=== PATIENT | male | born 1995 | race American Indian/Alaskan Native ===

== ENCOUNTER 2017-10-18 15:25 | Emergency (ER) | payer SELFPAY ==
[2017-10-18 15:56] VITALS: BP 148/84
--- NOTE | 2017-10-18 18:17 | Emergency Department Report ---
ED Psych HPI - General Chief Complaint: Psych Stated Complaint: MENTAL HEALTH EVALUATION Time Seen by Provider: 10/18/17 18:01 Source: patient Mode of arrival: Ambulatory - History of Present Illness Initial Comments: Patient is a 22-year-old black male who is presenting with psych issues. Patient states he is hearing his family talking it is irritating his left ear. Patient is states that he is hearing smacking sound but states he is not hearing voices. Patient states he is just very irritated and agitated but denies any suicidal homicidal ideations. Patient's father states that they want him to be sent to a psychiatric facility patient again is adamant that he is not homicidal suicidal and just irritated. - Related Data Allergies Allergy/AdvReac Type Severity Reaction Status Date / Time No Known Allergies Allergy Unverified 10/18/17 15:44 ED Review of Systems ROS: Stated complaint: MENTAL HEALTH EVALUATION Other details as noted in HPI Comment: All other systems reviewed and negative ED Past Medical Hx - Past Medical History Hx Psychiatric Treatment: (Bipolar, Schziophrenia) - Social History Smoking Status: Current Every Day Smoker Substance Use Type: Marijuana ED Physical Exam - General Limitations: No Limitations General appearance: alert, in no apparent distress - Head Head exam: Present: atraumatic, normocephalic - Eye Eye exam: Present: normal appearance - ENT ENT exam: Present: mucous membranes moist - Neck Neck exam: Present: normal inspection - Respiratory Respiratory exam: Present: normal lung sounds bilaterally. Absent: respiratory distress - Cardiovascular Cardiovascular Exam: Present: regular rate, normal rhythm. Absent: systolic murmur, diastolic murmur, rubs, gallop - GI/Abdominal GI/Abdominal exam: Present: soft, normal bowel sounds - Rectal Rectal exam: Present: deferred - Extremities Exam Extremities exam: Present: normal inspection - Back Exam Back exam: Present: normal inspection - Neurological Exam Neurological exam: Present: alert, oriented X3 - Psychiatric Psychiatric exam: Present: normal affect, normal mood - Skin Skin exam: Present: warm, dry, intact, normal color. Absent: rash ED Course Vital Signs 10/18/17 15:44 Temperature 98 F Pulse Rate 116 H Respiratory 16 Rate Blood Pressure 148/84 O2 Sat by Pulse 100 Oximetry ED Medical Decision Making - Medical Decision Making Patient is 22 years old brought in for psych evaluation. Patient is adamant that he does not want an evaluation at this time he states he is not wanting to harm himself or harm anyone else. Patient's father states he is a drug user and needs help with drug and alcohol abuse. Patient also states he does not want her any help with drugs or alcohol at this time does not want to see a social work manager. Patient was given information for [facility] and will be discharged home Critical care attestation.: If time is entered above; I have spent that time in minutes in the direct care of this critically ill patient, excluding procedure time. ED Disposition Clinical Impression: Excessive anger, Drug abuse Disposition: [id number] TO HOME OR SELFCARE Is pt being admited?: No Does the pt Need Aspirin: No Condition: Stable Referrals: PRIMARY CARE, [Primary Care Provider] - 3-5 Days
== END 2017-10-18 18:21 | disposition home or self-care (01) ==
LOC: ED 15:25
DX: R45.4 Irritability and anger (principal); F31.9 Bipolar disorder, unspecified; F20.9 Schizophrenia, unspecified; F17.200 Nicotine dependence, unspecified, uncomplicated; F12.10 Cannabis abuse, uncomplicated
CPT/HCPCS: 99282